=== PATIENT | female | born 1995 | race Caucasian/White ===

== ENCOUNTER 2016-12-20 21:22 | Inpatient (IN) | payer MEDICAID, OTHER ==
[~2016-12-20] VITALS: Ht 170.2 cm; Wt 82.2 kg
[2016-12-20] MEDS ORDERED: FLUO20CA8 PO (21:36)
[2016-12-20] MEDS ORDERED: DIVA500T2 PO (21:36)
[2016-12-20 22:08] LABS: DAU SCREEN DISCLAIMER
[2016-12-20 22:23] LABS: ASPARTATE AMINO TRANSFERASE 40 U/L (15-37); BLOOD UREA NITROGEN 8 mg/dL (7-18)
[2016-12-20 22:37] LABS: ACETAMINOPHEN < 2 mcg/mL (10-30)
[2016-12-20] MEDS ORDERED: SODIUM CHLORIDE 0.9% 1,000ML IVBOLUS ONE (23:00)
[2016-12-20 23:08] LABS: HCG UR OBC PASS
[2016-12-21 01:46] VITALS: BP 107/68
[2016-12-21 02:00] VITALS: BP 102/62
[2016-12-21] MEDS: ENOXAPARIN 40 MG/0.4 ML SQ SCH (03:04)
[2016-12-21 07:30] VITALS: BP 100/61
[2016-12-21 09:59] LABS: ASPARTATE AMINO TRANSFERASE 31 U/L (15-37); BLOOD UREA NITROGEN 5 mg/dL (7-18)
[2016-12-21 14:08] VITALS: BP 130/74
[2016-12-21 20:00] VITALS: BP 124/76
[2016-12-22 02:00] VITALS: BP 103/65
[2016-12-22 04:21] LABS: BLOOD UREA NITROGEN 7 mg/dL (7-18)
[2016-12-22 04:24] LABS: ASPARTATE AMINO TRANSFERASE 27 U/L (15-37)
[2016-12-22] MEDS: ENOXAPARIN 40 MG/0.4 ML SQ SCH (05:20)
[2016-12-22 07:15] VITALS: BP 130/79
[2016-12-22] MEDS ORDERED: POTASSIUM CHLORIDE 20 MEQ TAB.ER.PRT PO ONE (08:00)
[2016-12-22 14:21] VITALS: BP 114/74
[2016-12-22 20:31] VITALS: BP 112/72
[2016-12-23 02:25] VITALS: BP 111/70
[2016-12-23] MEDS ORDERED: ENOXAPARIN 40 MG/0.4 ML SQ SCH (05:00)
[2016-12-23 07:02] VITALS: BP 120/76
[2016-12-23 19:47] VITALS: BP 112/74
[2016-12-24 08:03] VITALS: BP 116/69
[2016-12-24 08:05] VITALS: BP 117/77
== END 2016-12-24 10:00 | DRG 918 ==
LOC: ED 22:48 → EDIP 12-21 00:08 → 4WST 12-21 01:21 → 3E 12-23 12:34
PROVIDERS: ADMIT Internal Medicine; ATTEND Internal Medicine
DX: T42.6X2A Poisoning by other antiepileptic and sedative-hypnotic drugs, intentional self-harm, initial encounter (principal); F33.9 Major depressive disorder, recurrent, unspecified; E87.6 Hypokalemia; F10.10 Alcohol abuse, uncomplicated; R55 Syncope and collapse; Y90.7 Blood alcohol level of 200-239 mg/100 ml; Z90.89 Acquired absence of other organs; Z82.0 Family history of epilepsy and other diseases of the nervous system; Z82.49 Family history of ischemic heart disease and other diseases of the circulatory system; Y92.89 Other specified places as the place of occurrence of the external cause
CPT/HCPCS: 36415; 80053; 80164; 80307; 80329; 81003; 81025; 82962; 85025; 96360; J1650; G0480; J7030

== ENCOUNTER 2017-08-31 12:00 | Emergency (ER) | payer MEDICAID ==
[~2017-08-31] VITALS: Ht 170.2 cm; Wt 78.4 kg
[~2017-08-31 12:00] MED LIST: DIVA500T2 PO; FLUO20CA8 PO
[2017-08-31 12:07] VITALS: BP 142/86
[2017-08-31] MEDS ORDERED: IBUPROFEN 200 MG TABLET ONE (12:35)
[2017-08-31] MEDS ORDERED: IBUPROFEN 200 MG TABLET PO ONE (13:00)
== END 2017-08-31 13:51 | disposition home or self-care (01) ==
LOC: ED 13:05
DX: S40.011A Contusion of right shoulder, initial encounter (principal); W10.9XXA Fall (on) (from) unspecified stairs and steps, initial encounter; Y93.01 Activity, walking, marching and hiking; Y92.098 Other place in other non-institutional residence as the place of occurrence of the external cause; Y99.8 Other external cause status
CPT/HCPCS: 99284